=== PATIENT | female | born 1945 | race Caucasian/White ===

== ENCOUNTER → 2016-05-16 | Outpatient (CLI) | payer OTHER ==
[~2016-05-16] MED LIST: CALCIUM 500 + D1 TAB PO; CARAFATE PO; CERTAGEN PO; DARVOCET-N 1001 TAB PO; FIORICET; FISH OIL 1,0001 CAP PO; FOSAMAX PO; GLUCOPHAGE500 MG PO; LIPITOR PO; OMEPRAZOLE40 M1 PO; OMEPRAZOLE40 MG; PROTONIX PO; TRAMADOL HCL50 M2 PO; VIT E PO; VITAMIN C PO; ZESTRIL5 MG PO
--- NOTE | ~2016-05-16 | MY11 ---
[facility] A Service of [facility] RADIOLOGY TEXT RESULTS PATIENT: BOOGIE ENRIQUEZ LOCATION: [facility] : 43 UNIT #: [id number] AGE: [address]: Jessica Wu APRN SEX: F ORDER DR: [id number] [facility] [address] [place], [place] [address] [id number] O MR#: [id number] #: [id number] NAME: BOOGIE ENRIQUEZ : 1945 SEX: F STUDY DATE/TIME: 05/16/2016 14:31 UNIT: [facility] ROOM: STUDY DESCRIPTION: MY Mammogram Screening Dig Filippo Attending Physician: Jessica Wu A.P.R.N. Ordering Physician: Jessica Wu A.P.R.N. Primary Care Physician: Jessica Wu A.P.R.N. MEDICAL IMAGING REPORT This report is preliminary unless electronic signature is present EXAM Digital screening mammogram, 05/16/2016 HISTORY 71-year-old woman positive family history, mother in her 50s. Previous left breast biopsy. Annual screening. COMPARISON Mammograms date to 03/29/2006 with most recent 05/15/2015. FINDINGS Digital imaging of each breast was completed utilizing a two-view examination of each breast in craniocaudal and mediolateral-oblique projections. Review and interpretation of digital mammograms include a second review in conjunction with FDA-approved CAD device. There is a normal parenchymal presentation bilaterally consistent with the patient's age. There are no breast masses imaged and no parenchymal asymmetry is visualized. There are no suspicious microcalcifications and I see no focal architectural disturbance. IMPRESSION Negative screening digital mammogram. One-year followup recommended. ADDENDUM Breast parenchyma is fatty replaced. Patients over the age of 40 are entered into a reminder system with target due date for the next mammogram. A result letter will also be sent to the patient. BIRADS: 1 Negative [facility] A Service [facility] RADIOLOGY TEXT RESULTS PATIENT: BOOGIE ENRIQUEZ LOCATION: [facility] #: [id number] : 43 UNIT #: [id number] AGE: [address]: Jessica Wu APRN SEX: F ORDER DR: Dictated by... Melvin Mcgill M.D. THIS IS AN ELECTRONICALLY VERIFIED REPORT Melvin Mcgill M.D. at 05/17/2016 8:03 AM PETE/sterling TD: 05/16/2016 21:07 JOB #: [id number] MEDICAL IMAGING REPORT COPY
== END | disposition home or self-care (01) ==
LOC: CWCC 14:14
DX: Z12.31 Encounter for screening mammogram for malignant neoplasm of breast (principal); Z80.3 Family history of malignant neoplasm of breast; R92.8 Other abnormal and inconclusive findings on diagnostic imaging of breast; Z98.890 Other specified postprocedural states
CPT/HCPCS: G0202